=== PATIENT | female | born 1945 | race Caucasian/White ===

== ENCOUNTER → 2016-05-16 | Outpatient (CLI) | payer MEDICARE, OTHER ==
--- NOTE | 2016-05-16 13:16 | RAD ---
EXAM DESCRIPTION: Thoracic Spine,AP Lateral CLINICAL HISTORY: 70 years Female, INJURY IMPRESSION: 3 views of the thoracic spine reveals an epidural stimulator. Multilevel degenerative change of the thoracolumbar spine with intervertebral disc height loss and anterior osteophytes. This results in exaggeration of the thoracic kyphosis. The C7-T1 junction is visualized and unremarkable. No vertebral body fracture. Electronically signed by: Kenny Sewell MD 05/16/2016 1:15 PM CDT
== END | disposition home or self-care (01) ==
LOC: RAD 10:40
PROVIDERS: ATTEND Nurse Practitioner Family
DX: M51.34 Other intervertebral disc degeneration, thoracic region (principal); T14.8 Other injury of unspecified body region

== ENCOUNTER → 2016-10-13 | Outpatient (CLI) | payer MEDICARE, OTHER | LOC: GMAL 10:59 | PROVIDERS: ATTEND Family Medicine | DX: R30.0 Dysuria (principal); D48.61 Neoplasm of uncertain behavior of right breast; N63 Unspecified lump in breast; C50.919 Malignant neoplasm of unspecified site of unspecified female breast; D51.3 Other dietary vitamin B12 deficiency anemia; R53.83 Other fatigue; M25.50 Pain in unspecified joint; E55.9 Vitamin D deficiency, unspecified; Z85.3 Personal history of malignant neoplasm of breast ==

== ENCOUNTER → 2016-10-21 | Outpatient (CLI) | payer MEDICARE, OTHER ==
--- NOTE | 2016-10-22 07:13 | US ---
EXAM DESCRIPTION: Abdomen,Complete CLINICAL HISTORY: ELEVATED LFTsnone COMPARISON: None TECHNIQUE: Real-time sonographic images of the abdomen are obtained FINDINGS: Pancreas is unremarkable. The right lobe of the liver measures 15.2cm. The liver is diffusely homogeneous and increased in echogenicity compatible with hepatic steatosis. No focal hepatic mass is seen. The gallbladder is normally distended and free of abnormal internal echogenicities. No gallbladder wall thickening or pericholecystic fluid is seen. The common bile duct measures five mm in greatest diameter. The right kidney measures 7.9 cm. The left kidney measures 8.8 cm. Both kidneys show normal renal cortical echogenicity. No hydronephrosis is seen. The spleen measures 9.9 cm. Visualized IVC and abdominal aorta are within normal limits. IMPRESSION: Hepatic steatosis. Otherwise, unremarkable abdominal ultrasound. Electronically signed by: Jeison Moreland MD 10/22/2016 7:11 AM CDT
== END | disposition home or self-care (01) ==
LOC: US 08:44
PROVIDERS: ATTEND Family Medicine
DX: R94.5 Abnormal results of liver function studies (principal)

== ENCOUNTER → 2017-04-24 | Outpatient (CLI) | payer MEDICARE, OTHER ==
--- NOTE | 2017-04-24 21:40 | CT ---
EXAM DESCRIPTION: Soft Tissue Neck w/Contrast: Computed Tomography. CLINICAL HISTORY: R59.9. Enlarged lymph nodes, unspecified. COMPARISON: MRI scan cervical spine 11/06/2014. TECHNIQUE: Spiral, axial 2.5 mm scans through the neck soft tissues after infusion of IV contrast. Sagittal and coronal 2.0 mm reconstructions. No adverse reactions. Total Exam DLP: 323.76 mGy-cm. This exam was performed according to our departmental CT dose-optimization program which includes automated exposure control, adjustment of the mA and/or kV according to patient size and/or use of iterative reconstruction technique; to reduce radiation dose to as low as reasonably achievable (ALARA). FINDINGS: Included mastoid air cells are well aerated as are included sphenoid paranasal air cells. No abnormal enhancement or mass in the subcutaneous adipose tissue. Lymph nodes in the bilateral parapharyngeal spaces, bilateral carotid spaces, and bilateral per cervical spaces are not enlarged. Normal size and density and enhancement of the bilateral included salivary glands. No sublingual masses. The tongue appears symmetric. No effacement of the nasopharynx or oropharynx by soft tissue mass and no abnormal enhancement. No effacement or displacement of the hypopharynx and larynx with no soft tissue mass or abnormal enhancement. Normal enhancement of the thyroid gland bilaterally. No soft tissue masses or enlarged lymph nodes in the base of the neck or abutting the thoracic inlet. Pleural thickening at the right apex anterior bilaterally and posterior. Calcification of the origin of the brachiocephalic vessels and the included thoracic aortic arch. Arthrosis in the bilateral atlantooccipital joints. Atlantoaxial joint, and the bilateral C1-C2 facets. Trace anterolisthesis C3-4 and grade 1 anterolisthesis C4-5. C6-7 spondylosis with bulging disks canal and foraminal narrowing and possible neural foraminal stenosis. IMPRESSION: 1. No abnormal adenopathy in the skull base, neck, or abutting the thoracic inlet. 2. No abnormal solid organs or enhancement. No mass effect or displacement of the airway. 3. Apical pleural thickening abutting the right lung. 4. Cervical spondylosis and spondylolisthesis. Electronically signed by: Saleem Au MD 04/24/2017 9:39 PM CDT Workstation: [id number]
== END ==
LOC: CT 08:00
PROVIDERS: ATTEND Family Medicine
DX: R59.9 Enlarged lymph nodes, unspecified (principal); M47.892 Other spondylosis, cervical region; M43.12 Spondylolisthesis, cervical region

== ENCOUNTER 2017-06-22 12:06 | Emergency (ER) | payer MEDICARE, OTHER ==
[2017-06-22 12:22] VITALS: TEMP 98.8
--- NOTE | 2017-06-22 13:16 | RAD ---
EXAM DESCRIPTION: Abdomen Series CLINICAL HISTORY: left sided abd pain, diarrhea with bloody stool. COMPARISON: None. TECHNIQUE: Upright PA chest with supine and upright views of the abdomen FINDINGS: The lungs are clear. Abnormal bowel gas pattern with moderately dilated loops of colon with short fluid levels colon and small bowel. IMPRESSION: 1. Findings are nonspecific but could indicate colitis, possibly pseudomembranous enterocolitis if the patient has recently been on antibiotic therapy. Electronically signed by: Ronan Swanson MD 06/22/2017 1:15 PM CDT
--- NOTE | 2017-06-22 14:08 | ED.PDOC ---
History of Present Illness - General Chief Complaint: GI Problem Stated Complaint: diarrhea Time Seen by Provider: 06/22/17 12:28 Source: patient Exam Limitations: no limitations - History of Present Illness Initial Comments: the patient is a 71-year-old female presenting to the emergency room secondary to mild left and lower abdominal discomfort with associated diarrhea and a little bit of blood with the diarrhea since this morning. No real difficulty yesterday. Mild nausea but no vomiting. No syncope or near syncope. No fever. She has not been on antibiotics recently. No history of any inflammatory bowel disease. She has never had a colonoscopy. Timing/Duration: unsure Severity: moderate Improving Factors: nothing Worsening Factors: nothing Associated Symptoms: denies symptoms Allergies/Adverse Reactions: Allergies Doxycycline Allergy (Verified 06/22/17 12:22) Iodine Allergy (Unverified 04/04/12 10:28) Penicillins Allergy (Unverified 04/04/12 10:28) Sulfa Drugs Allergy (Unverified 04/04/12 10:28) Tizanidine Allergy (Verified 06/22/17 12:22) Home Medications: Ambulatory Orders Acetaminophen Arthritis [Tylenol Arthritis] 650 mg PO PRN 06/22/17 Ciprofloxacin [Cipro] 500 mg PO BID #14 tab 06/22/17 Lisinopril 20 mg PO BID 06/22/17 Melatonin 1 mg PO PRN 06/22/17 Metronidazole 500 mg PO TID #20 tab 06/22/17 Montelukast [Singulair] 10 mg PO BEDTIME 06/22/17 Ranitidine HCl 150 mg PO BID 06/22/17 Sertraline HCl 150 mg PO DAILY 06/22/17 diphenhydrAMINE HCL [Benadryl] 25 mg PO PRN 06/22/17 Review of Systems - Review of Systems Constitutional: States: no symptoms reported EENTM: States: no symptoms reported Respiratory: States: no symptoms reported Cardiology: States: no symptoms reported Gastrointestinal/Abdominal: States: see HPI, abdominal pain, diarrhea Genitourinary: States: no symptoms reported Musculoskeletal: States: no symptoms reported Skin: States: no symptoms reported Neurological: States: no symptoms reported Endocrine: States: no symptoms reported All other Systems: No Change from Baseline Past Medical History (General) - Patient Medical History Hx Stroke: No Hx Congestive Heart Failure: No Hx Hypertension: Yes Hx Diabetes: No Hx Cancer: Yes - Breast - Vaccination History Hx Influenza Vaccination: Yes Hx Pneumococcal Vaccination: Yes - Social History Hx Tobacco Use: Yes Family Medical History - Family History Mother Family History: Unknown Living Status: Physical Exam - Physical Exam General Appearance: Alert, Comfortable, No apparent distress Eye Exam: bilateral normal Ears, Nose, Throat: hearing grossly normal, normal ENT inspection, normal pharynx Neck: full range of motion, supple Respiratory: lungs clear, normal breath sounds, no respiratory distress, no accessory muscle use Cardiovascular/Chest: normal peripheral pulses, regular rate, rhythm, no edema Peripheral Pulses: radial,right: 2+, radial,left: 2+ Gastrointestinal/Abdominal: soft, other - mild left sideddiscomfort palpation. No true rebound or peritoneal signs. Rectal Exam: deferred - the patient is reluctant to have a rectal exam., heme positive stool - grossly positive blood with the stool. Back Exam: normal inspection, no CVA tenderness Extremity: normal range of motion, non-tender, normal inspection, no pedal edema , normal capillary refill Neurologic: ssds mk 2 advanced operator II-XII nml as tested, alert, normal mood/affect, oriented x 3 Skin Exam: normal color Comments: Vital Signs - 24 hr 06/22/17 06/22/17 12:18 13:20 Temperature 98.8 F Pulse Rate [ 95 H 80 Left Brachial] Respiratory 20 16 Rate Blood Pressure 132/76 129/73 [Left Arm] O2 Sat by Pulse 97 98 Oximetry Progress - Progress Progress: 06/22/17 14:09 the patient is a 71-year-old female presenting to the emergency room secondary to left-sided abdominal discomfort with diarrhea that does have a small amount of blood with it. Presumptive diagnosis here is colitis versus diverticulitis, consistent with her x-ray. she did test negative for C. difficile here. Given the short duration of symptoms, additional imaging does not appear to be warranted at this time. White blood cell count was moderately elevated at 14,000. The patient is being placed on ciprofloxacin and metronidazole. She needs to keep herself well hydrated. at this point in time , I do not see that admitting the patient to the hospital would benefit her in any particular way. If pain worsens or bleeding worsens in spite of treatment, then she will need to return for additional workup and treatment. Otherwise she should follow up with her primary care doctor early next week for reevaluation. she is currently well hydrated and in no acute distress. Colonoscopy may be warranted on this patient at a later date given that she has never had one before according to her. ER warnings were given for any worsening. 06/22/17 14:13 - Results/Orders Results/Orders: Laboratory Results - last 24 hr 06/22/17 06/22/17 06/22/17 12:50 13:00 13:00 WBC 14.5 H RBC 4.58 Hgb 14.3 Hct 42.2 MCV 92.3 MCH 31.3 H MCHC 33.9 RDW 12.7 Plt Count 235 MPV 8.1 Absolute Neuts (auto) 10.70 H Absolute Lymphs (auto) 2.80 Absolute Monos (auto) 1.00 H Absolute Eos (auto) 0.00 Absolute Basos (auto) 0.00 Neutrophils % 73.9 Lymphocytes % 19.1 L Monocytes % 6.7 Eosinophils % 0.1 L Basophils % 0.2 Sodium 133 L Potassium 3.6 Chloride 99 L Carbon Dioxide 25 Anion Gap 12.6 BUN 9 Creatinine 1.06 BUN/Creatinine Ratio 8.5 L Random Glucose 111 H Serum Osmolality 265.8 L Calcium 9.3 Total Bilirubin 0.8 AST 28 ALT 19 Alkaline Phosphatase 64 Serum Total Protein 7.5 Albumin 4.0 Globulin 3.5 Albumin/Globulin Ratio 1.1 Amylase 73 Lipase 22 Urine Color Yellow Urine Appearance Clear Urine pH 7.0 Ur Specific Hessmer 1.010 Urine Protein Negative Urine Glucose (UA) Negative Urine Ketones Negative Urine Blood Negative Urine Nitrite Negative Urine Bilirubin Negative Urine Urobilinogen 0.2 Ur Leukocyte Esterase Negative Urine RBC 0 Urine WBC 0-1 Ur Epithelial Cells 3-5 Urine Bacteria Rare acute abdominal series shows no evidence of any obstruction or perforation. X- rays consistent with colitis. Departure - Departure Clinical Impression: Colitis presumed infectious Disposition: Discharge to Home or Self Care Condition: Fair Departure Forms: ED Discharge - Pt. Copy, Patient Portal Self Enrollment Instructions: DI for Colitis Diet: bland diet Activity: increase activity as tolerated Referrals: Remi Mauricio III, MD [Primary Care Provider] - 1-2 Weeks Prescriptions: Ciprofloxacin [Cipro] 500 mg PO BID #14 tab Metronidazole 500 mg PO TID #20 tab Home Medications: Ambulatory Orders Acetaminophen Arthritis [Tylenol Arthritis] 650 mg PO PRN 06/22/17 Ciprofloxacin [Cipro] 500 mg PO BID #14 tab 06/22/17 Lisinopril 20 mg PO BID 06/22/17 Melatonin 1 mg PO PRN 06/22/17 Metronidazole 500 mg PO TID #20 tab 06/22/17 Montelukast [Singulair] 10 mg PO BEDTIME 06/22/17 Ranitidine HCl 150 mg PO BID 06/22/17 Sertraline HCl 150 mg PO DAILY 06/22/17 diphenhydrAMINE HCL [Benadryl] 25 mg PO PRN 06/22/17 Additional Instructions: the patient is a 71-year-old female presenting to the emergency room secondary to left-sided abdominal discomfort with diarrhea that does have a small amount of blood with it. Presumptive diagnosis here is colitis versus diverticulitis, consistent with her x-ray. she did test negative for C. difficile here. Given the short duration of symptoms, additional imaging does not appear to be warranted at this time. White blood cell count was moderately elevated at 14,000. The patient is being placed on ciprofloxacin and metronidazole. She needs to keep herself well hydrated. at this point in time , I do not see that admitting the patient to the hospital would benefit her in any particular way. If pain worsens or bleeding worsens in spite of treatment, then she will need to return for additional workup and treatment. Otherwise she should follow up with her primary care doctor early next week for reevaluation. she is currently well hydrated and in no acute distress. Colonoscopy may be warranted on this patient at a later date given that she has never had one before according to her. ER warnings were given for any worsening.
[2017-06-22] MEDS ORDERED: metroNIDAZOLE 500 MG TAB PO ONE (14:12)
[2017-06-22] MEDS ORDERED: CIPROFLOXACIN 500 MG TAB PO ONE (14:12)
[2017-06-22 14:27] VITALS: BP 134/77; O2SAT 99
== END 2017-06-22 14:27 | disposition home or self-care (01) ==
LOC: ER 12:06
DX: K52.9 Noninfective gastroenteritis and colitis, unspecified (principal); I10 Essential (primary) hypertension; Z85.3 Personal history of malignant neoplasm of breast

== ENCOUNTER → 2017-07-13 | Outpatient (CLI) | payer MEDICARE, OTHER ==
--- NOTE | 2017-07-13 10:13 | RAD ---
EXAM DESCRIPTION: Barium Enema w/Gastrogaffin: CLINICAL HISTORY: SIGMOID OBSTRUCTION. Constipation. Lack of bowel movements. COMPARISON: Abdominal series 06/22/2017. Abdominal series at [facility] 07/07/2017. TECHNIQUE: Patient lateral left decubitus on fluoroscopic table. Gastrografin contrast one part mixture with 1 part water. Enema tip inserted in rectum. 1 fluoroscopic image to check balloon inflation. Gastrografin contrast introduced into the rectum in a retrograde manner under fluoroscopic visualization. Multiple fluoroscopic guided images, various positions. KUB was recorded with patient supine. The enema tip was removed and patient evacuated. The patient tolerated the procedure well, with no immediate complications. Fluoroscopy time was 1.9 minutes. Fluoroscopic images recorded: 10 . Conventional abdominal images recorded: 1. DAP 33.214 gy-centimeter squared. FINDINGS: Contrast moved rapidly through the rectosigmoid and descending colon to the splenic flexure and the distal transverse colon. No obstruction. Multiple diverticula in the rectosigmoid with minimal spasm but no intrinsic masses. No contrast extravasation. No mass effect. The proximal sigmoid colon descending colon and splenic flexure demonstrating relatively smooth rosario. IMPRESSION: Diverticulosis of the rectosigmoid colon with minimal spasm. No intrinsic mass or mass effect. No contrast extravasation. Decreased haustral markings in the splenic flexure, descending colon, and proximal sigmoid colon. Images were reviewed in person with Dr. Cordero at approximately 1000 hours on 07/13/2017. CRITICAL COMMUNICATION: The critical value was discussed directly by phone with Dr. Remi Mauricio at approximately 915 hours, on 07/13/2017 Electronically signed by: Saleem Au MD 07/13/2017 10:11 AM CDT
== END ==
LOC: RAD 07:59
PROVIDERS: ATTEND Family Medicine
DX: K56.49 Other impaction of intestine (principal); K57.30 Diverticulosis of large intestine without perforation or abscess without bleeding

== ENCOUNTER → 2017-07-18 | Outpatient (CLI) | payer MEDICARE, OTHER ==
--- NOTE | 2017-07-18 13:52 | CT ---
EXAM DESCRIPTION: Abdomen/Pelvis w/wo Contrast: Computed Tomography. CLINICAL HISTORY: K56.49. Other impaction of intestine. COMPARISON: Limited Gastrografin enema under fluoroscopy guidance, 07/13/2017. TECHNIQUE: Spiral-axial scans at 5.0 mm intervals through the abdomen and pelvis before and after standard dose nonionic IV contrast. Water soluble barium oral contrast. Coronal and sagittal 2.0 mm reconstructions. 5 mm Delayed helical-axial scans, liver through the pubic symphysis. No adverse reactions. Total Exam DLP 3017.69 mGy - cm. This exam was performed according to our departmental CT dose-optimization program which includes automated exposure control, adjustment of the mA and/or kV according to patient size and/or use of iterative reconstruction technique; to reduce radiation dose to as low as reasonably achievable (ALARA). FINDINGS: Lung bases and pleura: Minimal scarring in the bilateral bases. Coronary artery calcifications. Liver, Stomach, Spleen, Adrenal Glands: Stomach contains oral contrast. Long axis of the right lobe of the liver is 18.2 cm. Pancreas, Gallbladder, Ducts: Gallbladder is visualized. Question of sludge in the gallbladder neck. Normal caliber of the duct. Pancreas negative. Celiac axis range calcifications. Kidneys and Ureters: Unremarkable. Mesentery: no fascial thickening or fatty stranding. No free air or free fluid. Aorta: Minimal intimal wall thickening and moderate atherosclerotic calcification mostly distal. Transverse diameter of the distal segment is 2.5 cm. Small Bowel: Contains oral contrast. Normal caliber. Terminal Ileum/Cecum: Normal caliber of the terminal ileum with a 7 cm diverticula on the medial wall. Cecum is unremarkable with fatty appearance of the ileocecal valve. Appendix is not seen. Colon: Hypertrophic haustra in the ascending colon, approximately 6-7 are seen. The first proximal posterior abutting the ileocecal valve shows thickened muscle versus mass or polyp, with narrowed lumen. (Coronal sequence image 65, axial sequence image 44, and sagittal sequence image 83.) More distally, the contrast is less concentrated in the air-fluid levels in the transverse and descending colon and rectosigmoid. Mild redundancy of the sigmoid colon. Small diverticula with no complications. No mass effect or large intrinsic mass.. Pelvic Organs: Small retroverted or retroflexed uterus. Ovaries may be present with calcifications. No fluid in the cul-de-sac. Small urinary bladder 3 4 oval-shaped with no calcifications. Spine and Bony Pelvis: Spondylosis L4-5 more than L5-S1 with minimal levoscoliosis and thoracolumbar dextroscoliosis. Bilateral hip arthrosis. Pubic symphysis arthrosis. No destructive lesions. Abdominal Wall/Back Soft Tissues: Bilateral stimulator posterior right side abutting the pelvis electrodes most likely in the thoracic spinal column. IMPRESSION: 1. Prominent haustral in the descending colon. The most prominent one is just distal to the ileocecal valve and cannot exclude polyp or mass. Consider colonoscopy. 2. Slight enlargement of the right lobe of the liver. Normal contrast enhancement with no focal lesions. 3. Small diverticula on the medial wall of the terminal ileum. 4. Ectasia of the distal abdominal aorta. 5. Spondylosis of the lumbar spine with scoliosis. Electronically signed by: Saleem Au MD 07/18/2017 1:51 PM CDT
== END ==
LOC: CT 10:01
PROVIDERS: ATTEND Family Medicine
DX: K56.49 Other impaction of intestine (principal); K57.90 Diverticulosis of intestine, part unspecified, without perforation or abscess without bleeding; I77.811 Abdominal aortic ectasia; M48.061 Spinal stenosis, lumbar region without neurogenic claudication; M41.9 Scoliosis, unspecified

== ENCOUNTER → 2017-12-01 | Outpatient (CLI) | payer MEDICARE, OTHER | LOC: RAD 09:09 | PROVIDERS: ATTEND Orthopaedic Surgery | DX: Z01.818 Encounter for other preprocedural examination (principal); M54.16 Radiculopathy, lumbar region; M79.641 Pain in right hand; M79.644 Pain in right finger(s) ==

== ENCOUNTER → 2018-01-10 | Outpatient (CLI) | payer MEDICARE, OTHER ==
--- NOTE | 2017-12-01 09:43 | RAD ---
EXAM DESCRIPTION: Fingers,Right CLINICAL HISTORY: 72 years Female, PAIN IN RIGHT FINGERS TECHNIQUE: 3 views of the right middle were performed. FINDINGS: The visualized bones are well-mineralized.No acute fracture or dislocation. The soft tissues appear grossly unremarkable. Degenerative changes are identified in the proximal and distal interphalangeal joints of the right middle finger. IMPRESSION: Degenerative changes are identified in the proximal and distal interphalangeal joints of the right middle finger. Electronically signed by: Jessica Link MD 12/01/2017 9:42 AM CDT
--- NOTE | 2017-12-01 09:44 | RAD ---
EXAM DESCRIPTION: Hand,Right 3 Views CLINICAL HISTORY: PAIN IN RIGHT HAND COMPARISON: None Available. TECHNIQUE: AP, LATERAL, AND OBLIQUE FINDINGS: The visualized bones appear well mineralized. No acute fracture or dislocation. The soft tissues appear grossly unremarkable. Moderate to severe osteoarthritis of the first right carpometacarpal joint. Degenerative changes are identified in the proximal and interphalangeal joints of the hand. IMPRESSION: Moderate to severe osteoarthritis of the first right carpometacarpal joint. Degenerative changes are identified in the proximal and interphalangeal joints of the hand. Electronically signed by: Jessica Link MD 12/01/2017 9:43 AM CDT
--- NOTE | 2018-01-11 08:31 | CT ---
EXAM DESCRIPTION: Lumbar Spine CLINICAL HISTORY: 72 years, Female, LUMBAR RADICULOPATHY COMPARISON: CT abdomen pelvis dated July 18, 2017. TECHNIQUE: Contiguous thin section axial images were obtained through the lumbar spine without the use of intravenous contrast. Reformatted coronal and sagittal images were also obtained and reviewed. FINDINGS: Diffuse osteopenia of the visualized bones noted. Normal lumbar lordotic curvature is seen. No acute compression deformity. The vertebral body heights are well-maintained. Multilevel degenerative changes of the lumbar spine noted more predominant at L4-L5 and L5-S1 levels with intervertebral disc space narrowing and vacuum disc phenomenon. No evidence of spondylolisthesis. The pre and paravertebral soft tissues appear grossly unremarkable. Extensive atherosclerotic calcifications of the abdominal aorta noted. L1-L2: Mild diffuse disc bulge, mild to moderate bilateral facet hypertrophy and ligamentum flavum thickening causing mild canal narrowing. No significant neural foramen narrowing. L2-L3: Mild diffuse disc bulge, moderate facet hypertrophy changes and ligamentum flavum thickening causing moderate spinal canal narrowing. No significant neural foramen narrowing. Posterior epidural lipomatosis is also contributing to spinal canal narrowing. L3-L4: Mild diffuse disc bulge, severe facet hypertrophic changes and ligamentum flavum thickening causing moderate spinal canal narrowing. Moderate bilateral neural foramen narrowing. Posterior epidural lipomatosis also contiguity to moderate spinal canal narrowing. L4-L5: Mild diffuse disc bulge, severe facet hypertrophic changes and ligamentum flavum thickening causing [id number] spinal canal narrowing. Moderate right and moderate to severe left neural foramen narrowing. L5-S1: Mild diffuse disc bulge, moderate bilateral facet hypertrophic changes and ligamentum flavum thickening with no significant spinal canal narrowing. Moderate right and mild left neural foramen narrowing. IMPRESSION: 1. No acute compression deformity. 2. Multilevel degenerative changes of the lumbar spine more predominant at L4-L5 and L5-S1 levels with intervertebral disc space narrowing. 3. Posterior epidural lipomatosis at L2-L3 and L3-L4 level causing spinal canal narrowing, predominantly at L3-L4 level. This exam was performed according to our departmental dose-optimization program, which includes automated exposure control, adjustment of the mA and/or kV according to patient size and/or use of iterative reconstruction technique. Electronically signed by: Costa Hernandez MD 01/11/2018 8:30 AM SURVEY RESEARCH TEACHER
== END ==
LOC: CT 10:00
PROVIDERS: ATTEND Family Medicine
DX: M51.16 Intervertebral disc disorders with radiculopathy, lumbar region (principal)

== ENCOUNTER 2018-01-16 05:44 | Day surgery (SDC) | payer MEDICARE, OTHER ==
--- NOTE | 2018-01-15 10:26 | HP ---
CHIEF COMPLAINT: Right third digit pain. HISTORY OF PRESENT ILLNESS: Dilma is a 72-year-old female with a history of pain in the right third digit. She describes the pain as being in the palmar region and also has some clicking and occasional locking. She has requested operative intervention. After discussing the risks, benefits and alternatives to that the patient has given informed consent for trigger finger release. PAST SURGICAL HISTORY: 1. Mastectomy. 2. Cataract removal. 3. Pain pump placement. MEDICATIONS: 1. Penicillin. 2. Doxycycline. 3. Tizanidine. ALLERGIES: NO KNOWN DRUG ALLERGIES. CODE STATUS: Full code. IMMUNIZATIONS: Up to date. FAMILY HISTORY: None pertinent to today's complaint. SOCIAL HISTORY: The patient does not drink, smoke or use any illicit drugs. REVIEW OF SYSTEMS: Negative except as indicated in the History of Present Illness. PHYSICAL EXAMINATION: VITAL SIGNS: Blood pressure 162/86. Pulse 84. Height 5'8". Weight 185 pounds. MENTAL STATUS: The patient is awake, alert, and is able to give a good history and participate in the physical. The patient is oriented to person, place and time. SKIN: Normal tone and turgor. MUSCULOSKELETAL: She has tenderness over the A1 darrin. She has intact sensation throughout the hand. It is warm and well perfused. She has palpable clicking with flexion at the A1 darrin. ASSESSMENT: 1. Trigger finger. PLAN: The plan at this point is for trigger finger release. We have discussed the risks, benefits, and alternatives to that and the patient has given informed consent. #[id number] MTDD
[2018-01-16] MEDS ORDERED: SODIUM CHL 0.9% 100ML MINI-BAG 100 ML IVPB ONE (07:57)
[2018-01-16] MEDS ORDERED: ceFAZolin SODIUM 1 GM VIAL ONE (07:58)
[2018-01-16] MEDS ORDERED: LACTATED RINGERS 1,000 ML ONE (07:58)
[2018-01-16] MEDS ORDERED: BUPIVACAINE 0.25% INJ 30 ML VIAL INJ ONE (08:41)
[2018-01-16] MEDS ORDERED: LIDOCAINE 1% 10 ML VIAL INJ ONE ×2 (08:42→10:00)
[2018-01-16] MEDS ORDERED: fentaNYL CITRATE INJ 50 MCG/ML AMP ONE (09:19)
[2018-01-16] MEDS: ceFAZolin SODIUM 1 GM VIAL ONE ×2 (09:51→10:00)
[2018-01-16] MEDS: VANCOMYCIN HCL INJ 1,000 MG VIAL IVPB ONE ×2 (09:51→10:00)
[2018-01-16] MEDS ORDERED: PROPOFOL 200 MG/20 ML VIAL IV ONE (10:00)
[2018-01-16] MEDS ORDERED: HYDROcodone 5MG/APAP 325MG 1 EA TAB ONE (10:25)
[2018-01-16 11:06] VITALS: BP 166/75; TEMP 96.6; O2SAT 95
--- NOTE | 2018-01-18 09:57 | OP ---
DATE OF PROCEDURE: 01/16/18 PREOPERATIVE DIAGNOSIS: 1. Trigger finger. POSTOPERATIVE DIAGNOSIS: 1. Trigger finger. PROCEDURE: 1. Trigger finger release. SURGEON: Ash Schrader MD. LABORER CHEMICAL PROCESSING: Saleem Harris CST, SA-C. ANESTHESIA: Local with sedation. COMPLICATIONS: None. FINDINGS: Triggering at the A1 darrin of the right third digit. INDICATION: Ms. Epps has a history of pain and clicking at the A1 darrin. Because of failure of conservative measures, she requested operative intervention. After discussing the risks, benefits and alternatives to operative therapy, the patient has given informed consent for trigger finger release. PROCEDURE: The patient was brought to the Operating Room and placed in the supine position. Sedation was administered and local anesthetic was injected into the operative area. Following injection, the arm was sterilely prepped and draped. A transverse incision was made directly overlying the A1 darrin of the triggering digit and blunt dissection was carried down to the darrin while protecting the digital nerves. After identification of the darrin, the darrin was transected and a [place] elevator was passed both proximally and distally to ensure complete release. The finger was flexed and extended and there was no evidence of locking or clicking. The wound was thoroughly irrigated and closed with Nylon suture. A sterile dressing was placed and the patient was taken to the Day Surgery Unit. POSTOPERATIVE PLAN: The patient will be doing range of motion of the digits on day 1 and will followup with us in two days. #[id number] MTDD
== END 2018-01-16 11:25 | disposition home or self-care (01) ==
LOC: AMB 05:44
PROVIDERS: ATTEND Orthopaedic Surgery
DX: M65.331 Trigger finger, right middle finger (principal); I10 Essential (primary) hypertension; K21.9 Gastro-esophageal reflux disease without esophagitis; J44.9 Chronic obstructive pulmonary disease, unspecified; Z87.891 Personal history of nicotine dependence; Z85.3 Personal history of malignant neoplasm of breast; Z88.0 Allergy status to penicillin; Z88.2 Allergy status to sulfonamides; Z88.8 Allergy status to other drugs, medicaments and biological substances; Z79.899 Other long term (current) drug therapy
CPT/HCPCS: 01810; 26055; 80307; J0690; J3010; J3370; J3490; J7050; J7120

== ENCOUNTER → 2018-02-14 | Outpatient (CLI) | payer MEDICARE, OTHER ==
--- NOTE | 2018-02-14 16:34 | RAD ---
EXAM DESCRIPTION: Barium Swallow: Rad-Fluoroscopy. CLINICAL HISTORY: food in esophagus causing other injury COMPARISON: None TECHNIQUE: The patient swallowed barium pill with water. The patient swallowed gas-producing granules, water, and heavy density barium under fluoroscopic visualization. The images were obtained with the patient standing and horizontal. Patient drank medium density barium through a straw in the semi-prone position. 89 fluoroscopic cine loop images. 13 static fluoroscopic images. Total fluoroscopy time was 2.8 minutes. DAP: 15.07 Gy-cm2.. 105.7 mGy. FINDINGS: There was some delay in patient swallowing the barium pill in the oral cavity and also in the proximal esophagus. Also delay at the gastroesophageal junction before passage into the stomach. Initial swallow is unremarkable with no mass effect or laryngeal penetration or aspiration. Patient does not completely empty oral cavity with residual contrast filling into the left vallecula and pooling. Primary peristaltic wave reaches the junction between the middle third and distal third of the esophagus. Secondary contractions are seen in the distal esophagus. No mucosal lesions or mass effect. Minimal narrowing at the gastroesophageal junction. When patient tilted from upright to supine position, there was marked gastroesophageal reflux to the level of the thoracic inlet.. Less reflux noted when patient rolled from supine to prone position. Stomach moderately distended with contrast and barium Patient has dorsal column stimulator electrodes at approximately the T8-T9 level. IMPRESSION: 1. Delays in swallowing noted in the laryngeal region and gastroesophageal region. No laryngeal aspiration or penetration. Incomplete swallowing with residual barium in the oral cavity draining into the left vallecula. 2. Secondary swallowing noted in the distal third of the esophagus. No mucosal lesions. Narrowing of the gastroesophageal junction. No abnormal hernia. Marked gastroesophageal reflux when patient tilted from upright position to supine position. Electronically signed by: Saleem Au MD 02/14/2018 4:33 PM [facility]
== END ==
LOC: RAD 08:54
PROVIDERS: ATTEND Family Medicine
DX: T18.108A Unspecified foreign body in esophagus causing other injury, initial encounter (principal); T18.128A Food in esophagus causing other injury, initial encounter

== ENCOUNTER 2018-02-17 16:37 | Emergency (ER) | payer MEDICARE, OTHER ==
--- NOTE | 2018-02-17 16:59 | ED.PDOC ---
History of Present Illness - General Chief Complaint: Abdominal Pain Stated Complaint: pain and cramping after taking tizanidine Time Seen by Provider: 02/17/18 16:57 Information Source: patient Exam Limitations: no limitations - History of Present Illness Initial Comments: patient comes in today for medication side effects. Patient was worried she accidentally took a medication that she has an allergy to. She has had long- term back spasms and history of back injury. For this she occasionally takes a muscle relaxer. In the past, when she took Tizanidine she had a reaction of severe abdominal cramping and diarrhea. She did not have any rash, shortness or breath, or swelling but was told not to take the medication any more. Today she got the pills she had mixed up and accidentally took one approximately two hours ago. No nausea, vomiting, fever, rash, shortness of breath, rash, or swelling is occurring now or before but patient was worried that an allergic reaction would be worse this time. Abdominal Pain Onset Location: LLQ Pain Radiation: no radiation Quality: severe, cramping Timing/Duration: 1-3 hours Improving Factors: nothing Worsening Factors: nothing Associated Symptoms: diarrhea Review of Systems - Review of Systems Constitutional: States: no symptoms reported. Denies: chills, fever EENTM: States: no symptoms reported. Denies: blurred vision, ear discharge, nose congestion, throat pain Respiratory: States: no symptoms reported. Denies: cough, short of breath, wheezing Cardiology: States: no symptoms reported. Denies: chest pain, edema, palpitations Gastrointestinal/Abdominal: States: see HPI Genitourinary: States: no symptoms reported Musculoskeletal: States: no symptoms reported Past Medical History (General) - Patient Medical History Hx Stroke: No Hx Congestive Heart Failure: No Hx Hypertension: Yes Hx Diabetes: No Hx Cancer: Yes - Breast Hx MRSA: No - Vaccination History Hx Influenza Vaccination: Yes Hx Pneumococcal Vaccination: Yes - Social History Hx Tobacco Use: Yes Family Medical History - Family History Mother Family History: Unknown Living Status: Physical Exam - Physical Exam General Appearance: Alert, Frail, No apparent distress Eyes, Ears, Nose, Throat Exam: PERRL/EOMI, normal ENT inspection, TMs normal, pharynx normal Neck: non-tender, full range of motion, supple, normal inspection Respiratory: chest non-tender, lungs clear, normal breath sounds, no respiratory distress Cardiovascular/Chest: normal peripheral pulses, regular rate, rhythm, no murmur Gastrointestinal/Abdominal: normal bowel sounds, soft, no pulsatile mass, tenderness - TTP LLQ with no rebound and no guarding no distention Progress - Progress Progress: 02/17/18 17:41 after patient has been resting with decrease in pain she states that last time she took this medication it caused some BRBPR. She has not seen any this time and none was seen with BM here but it was not tested. will order labs at this time - Results/Orders Results/Orders: Laboratory Results WBC 6.3 K/mm3 (4.8-10.8) 02/17/18 17:59 RBC 3.92 M/mm3 (4.20-5.40) L 02/17/18 17:59 Hgb 12.3 gm/dL (12.0-16.0) 02/17/18 17:59 Hct 37.2 % (36.0-47.0) 02/17/18 17:59 MCV 95.1 fl (81.0-99.0) 02/17/18 17:59 MCH 31.3 pg (27.0-31.0) H 02/17/18 17:59 MCHC 33.1 g/dL (33.0-37.0) 02/17/18 17:59 RDW 13.0 % (11.5-14.5) 02/17/18 17:59 Plt Count 178 K/mm3 (130-400) 02/17/18 17:59 MPV 7.9 fl (7.40-10.4) 02/17/18 17:59 Absolute Neuts (auto) 4.10 K/uL (1.8-6.8) 02/17/18 17:59 Absolute Lymphs (auto) 1.50 K/uL (1.0-3.4) 02/17/18 17:59 Absolute Monos (auto) 0.50 K/uL (0.2-0.8) 02/17/18 17:59 Absolute Eos (auto) 0.10 K/uL (0.0-0.4) 02/17/18 17:59 Absolute Basos (auto) 0.00 K/uL (0.0-0.1) 02/17/18 17:59 Neutrophils % 66.0 % (42.0-78.0) 02/17/18 17:59 Lymphocytes % 23.7 % (20.0-50.0) 02/17/18 17:59 Monocytes % 8.6 % (2.0-9.0) 02/17/18 17:59 Eosinophils % 1.3 % (1.0-5.0) 02/17/18 17:59 Basophils % 0.4 % (0.0-2.0) 02/17/18 17:59 Sodium 136 mmol/L (135-145) 02/17/18 17:59 Potassium 4.2 mmol/L (3.6-5.0) 02/17/18 17:59 Chloride 102 mmol/L (101-111) 02/17/18 17:59 Carbon Dioxide 28 mmol/L (21-31) 02/17/18 17:59 Anion Gap 10.2 (12-18) L 02/17/18 17:59 BUN 13 mg/dL (7-18) 02/17/18 17:59 Creatinine 0.97 mg/dL (0.6-1.3) 02/17/18 17:59 BUN/Creatinine Ratio 13.4 (10-20) 02/17/18 17:59 Random Glucose 105 mg/dL (70-105) 02/17/18 17:59 Serum Osmolality 272.4 mOsm/L (275-295) L 02/17/18 17:59 Calcium 9.1 mg/dL (8.4-10.2) 02/17/18 17:59 Total Bilirubin 0.3 mg/dL (0.2-1.0) 02/17/18 17:59 AST 26 IU/L (10-42) 02/17/18 17:59 ALT 17 IU/L (10-60) 02/17/18 17:59 Alkaline Phosphatase 69 IU/L (42-121) 02/17/18 17:59 Serum Total Protein 6.3 gm/dL (6.4-8.2) L 02/17/18 17:59 Albumin 3.4 g/dl (3.2-5.5) 02/17/18 17:59 Globulin 2.9 gm/dL (2.3-3.5) 02/17/18 17:59 Albumin/Globulin Ratio 1.2 (1.1-1.9) 02/17/18 17:59 Departure - Departure Clinical Impression: Medication side effect Disposition: Discharge to Home or Self Care Condition: Good Departure Forms: ED Discharge - Pt. Copy, Patient Portal Self Enrollment Instructions: DI for Abdominal Pain-Adult Referrals: Remi Mauricio III, MD [Primary Care Provider] - 1-2 Weeks Home Medications: Ambulatory Orders Acetaminophen Arthritis [Tylenol Arthritis] 650 mg PO PRN 06/22/17 Ciprofloxacin [Cipro] 500 mg PO BID #14 tab 06/22/17 Lisinopril 20 mg PO BID 06/22/17 Melatonin 1 mg PO PRN 06/22/17 Metronidazole 500 mg PO TID #20 tab 06/22/17 Montelukast [Singulair] 10 mg PO BEDTIME 06/22/17 Ranitidine HCl 150 mg PO BID 06/22/17 Sertraline HCl 150 mg PO DAILY 06/22/17 diphenhydrAMINE HCL [Benadryl] 25 mg PO PRN 06/22/17 Additional Instructions: increase by mouth fluids, return to ER for severe worsening of diarrhea or increase in pain. Follow-up on Monday with PCP if symptoms have not completely resolved.
[2018-02-17 17:59] VITALS: TEMP 97.6; O2SAT 96
[2018-02-17 18:47] VITALS: BP 98/43
== END 2018-02-17 19:00 | disposition home or self-care (01) ==
LOC: ER 16:37
DX: K52.1 Toxic gastroenteritis and colitis (principal); R10.32 Left lower quadrant pain; T42.8X5A Adverse effect of antiparkinsonism drugs and other central muscle-tone depressants, initial encounter; I10 Essential (primary) hypertension; Z85.3 Personal history of malignant neoplasm of breast; Z87.891 Personal history of nicotine dependence

== ENCOUNTER → 2018-03-14 | Outpatient (CLI) | payer MEDICARE, OTHER ==
--- NOTE | 2018-03-14 14:15 | RAD ---
EXAM: Thoracic Spine,AP Lateral CLINICAL HISTORY: INTERVERTEBRAL DISC DEGENERATION THORACIC REGION COMPARISON STUDY: Thoracic spine x-rays May 16, 2016 TECHNICAL: AP, lateral and swimmer's images of the thoracic spine FINDINGS: There is a slight exaggeration of the kyphotic curvature. There is no compression deformity/fracture. There are mild degenerative disc changes in the midthoracic levels. Intraspinal stimulation leads terminate at T6-7. IMPRESSION: Mild midthoracic degenerative disc changes are similar to the prior study. Electronically signed by: Anmol Alanis MD 03/14/2018 2:13 PM [facility]
== END ==
LOC: RAD 10:05
PROVIDERS: ATTEND Anesthesiology Pain Medicine
DX: M51.34 Other intervertebral disc degeneration, thoracic region (principal)

== ENCOUNTER → 2018-03-27 | Outpatient (CLI) | payer MEDICARE, OTHER | LOC: GMAL 14:27 | PROVIDERS: ATTEND Family Medicine | DX: D51.3 Other dietary vitamin B12 deficiency anemia (principal); E55.9 Vitamin D deficiency, unspecified ==

== ENCOUNTER → 2018-04-13 | Outpatient (CLI) | payer MEDICARE, OTHER ==
--- NOTE | 2018-04-17 11:34 | MAM ---
EXAM DESCRIPTION: 3D Screening BILATERAL : Digital Mammography. CLINICAL HISTORY: 72 years Female ANNUAL SCREENING . No complaints. Personal history of remote family history of breast cancer. Right breast cancer with mastectomy.. Childbirth. Postmenopausal state years. HRT 5 or more years ago Lifetime risk of developing breast cancer (Tyrer-Cuzick model)(%): Not calculated due to personal history of breast cancer. COMPARISON: 2-D digital screening left breast mammography 10/31/2013. TECHNIQUE: Left CC and MLO projection full-field images, digital tomosynthesis mammographic technique. Left digital 2-D full-field MLO images. CAD not available for tomosynthesis or 2-D images. FINDINGS: Left breast parenchymal density pattern is: Almost entirely fatty. No skin thickening or nipple retraction. Stable small microcalcifications. No new focal, stellate mass or density, focal asymmetry , and no suspicious microcalcifications left breast. Stable mammograms compared to prior study. Taking into account, differences in mammographic technique. IMPRESSION: BI-RADS CATEGORY: 1 - NEGATIVE FOLLOW UP: Routine digital bilateral screening, one year interval from April 2018. Written communication explaining the findings and follow-up, will be mailed to the patient and referring health care provider. According to the [employer], yearly mammograms are recommended starting at age 40 and continuing as long as a woman is in good health. Any breast change noted on a breast self-exam should be reported promptly to the patient's healthcare provider. Breast MRI is recommended for women with an approximately 20-25% or greater lifetime risk of breast cancer, including women with a strong family history of breast or ovarian cancer and women who have been treated for Hodgkin's disease. A negative mammographic report should not delay tissue diagnosis in patients with significant clinical history or physical findings. Extremely dense breast tissue limits the sensitivity of digital mammography. Electronically signed by: Saleem Au MD 04/17/2018 11:31 AM CDT
== END ==
LOC: MAMMO 10:00
PROVIDERS: ATTEND Family Medicine
DX: Z12.31 Encounter for screening mammogram for malignant neoplasm of breast (principal)

== ENCOUNTER 2018-04-23 19:25 | Emergency (ER) | payer MEDICARE, OTHER ==
--- NOTE | 2018-04-23 20:51 | ED.PDOC ---
History of Present Illness - General Chief Complaint: Back Pain or Injury Stated Complaint: Low back pain Time Seen by Provider: 04/23/18 20:37 Source: patient Exam Limitations: no limitations - History of Present Illness Initial Comments: LBP, ONSET THIS AM HAS GOTTEN WORSE. LOWER BACK ,NO RADIATION. FEVER ONSET TODAY. HX DISC HERNIATION IN PAST. Severity: moderate Improving Factors: nothing Worsening Factors: movement Associated Symptoms: cough, fever/chills Allergies/Adverse Reactions: Allergies Doxycycline Allergy (Verified 06/22/17 12:22) Iodine Allergy (Unverified 04/04/12 10:28) Penicillins Allergy (Unverified 04/04/12 10:28) Sulfa Drugs Allergy (Unverified 04/04/12 10:28) Tizanidine Allergy (Verified 06/22/17 12:22) Home Medications: Ambulatory Orders Acetaminophen Arthritis [Tylenol Arthritis] 650 mg PO PRN 06/22/17 Lisinopril 20 mg PO BID 06/22/17 Melatonin 1 mg PO PRN 06/22/17 Montelukast [Singulair] 10 mg PO BEDTIME 06/22/17 Ranitidine HCl 150 mg PO BID 06/22/17 Sertraline HCl 150 mg PO DAILY 06/22/17 Albuterol Inhaler [Ventolin Hfa Inhaler] 2 puff INH BID 04/23/18 Albuterol Sulfate Nebs [Proventil Nebs] 04/23/18 Chlortab 04/23/18 Gabapentin 300 mg PO 04/23/18 Meloxicam 15 mg PO DAILY 04/23/18 Tramadol HCl 50 mg PO Q6HR PRN 04/23/18 Acetaminophen W/ Codeine [Tylenol W/ CODEINE #3] 1 ea PO Q6HR PRN #24 04/24/18 Cefuroxime Axetil [Ceftin] 500 mg PO Q12H #20 tablet 04/24/18 Review of Systems - Review of Systems Constitutional: States: chills, fever EENTM: States: no symptoms reported Respiratory: States: cough, other - NON PROD. Denies: short of breath Cardiology: Denies: chest pain, palpitations, syncope Gastrointestinal/Abdominal: Denies: abdominal pain, nausea, vomiting Genitourinary: States: other - NO INCONTINENCE. Denies: dysuria, hematuria Musculoskeletal: States: back pain. Denies: neck pain Skin: States: no symptoms reported Neurological: Denies: numbness, weakness, other - NO FOOT DROP, PAIN DOES R ADIATE TO L FOOT Endocrine: States: no symptoms reported Hematologic/Lymphatic: States: no symptoms reported Past Medical History (General) - Patient Medical History Hx Stroke: No Hx of COPD: Yes Hx Congestive Heart Failure: No Hx Hypertension: Yes Hx Diabetes: No Hx Cancer: Yes - Breast Hx MRSA: No - Vaccination History Hx Influenza Vaccination: Yes Hx Pneumococcal Vaccination: Yes - Social History Hx Tobacco Use: Yes - Triage Comment ED Triage Comment: Pain to lower back, increasing all day. Family Medical History - Family History Mother Family History: Unknown Living Status: Physical Exam - Physical Exam General Appearance: Alert, No apparent distress Eye Exam: bilateral normal Ears, Nose, Throat: hearing grossly normal, normal ENT inspection Neck: non-tender, full range of motion, supple Respiratory: lungs clear, no respiratory distress Cardiovascular/Chest: regular rate, rhythm, no murmur Gastrointestinal/Abdominal: non tender, soft, no organomegaly Back Exam: other - TTP R CVA AND LUMBAR SPINE. NO BONY DEFORMITY. Extremity: normal range of motion, non-tender, normal inspection Neurologic: no motor/sensory deficits, alert, normal mood/affect, other - NO FOOT DROP, DTR: 1+: Achilles, left, Achilles, right, Patellar, left, 2+: Patellar, right Skin Exam: normal color Lymphatic: no adenopathy Progress - Progress Progress: 04/23/18 23:14 PAIN SLIGHTLY BETTER. 04/24/18 01:10 PT STABLE. DAUGHTER CONCERNED ABOUT HER GOING HOME, OFFERED PT 23 HOUR OBSERVATION BUT PT WANTS TO GO HOME. JUST FINISHED RX FOR SINUSITIS. - EKG/XRAY/CT XRAY: chest - RUTHIE - Additional EKG/XRAY/Consults XRAY #2: LS SPINE, DJD, RUTHIE Departure - Departure Clinical Impression: Fever, unknown origin Chronic back pain Qualifiers: Back pain location: low back pain Back pain laterality: right Sciatica presence: without sciatica Qualified Code(s): M54.5 - Low back pain; G89.29 - Other chronic pain Hypertension Qualifiers: Hypertension type: essential hypertension Qualified Code(s): I10 - Essential (primary) hypertension Time of Disposition: :16 Disposition: Discharge to Home or Self Care Condition: Good Departure Forms: ED Discharge - Pt. Copy, Patient Portal Self Enrollment Instructions: DI for Low Back Pain, Low Back Pain in Adults Referrals: Remi Mauricio III, MD [Primary Care Provider] - 1-2 Weeks Prescriptions: Acetaminophen W/ Codeine [Tylenol W/ CODEINE #3] 1 ea PO Q6HR PRN #24 PRN Reason: Pain Cefuroxime Axetil [Ceftin] 500 mg PO Q12H #20 tablet Home Medications: Ambulatory Orders Acetaminophen Arthritis [Tylenol Arthritis] 650 mg PO PRN 06/22/17 Lisinopril 20 mg PO BID 06/22/17 Melatonin 1 mg PO PRN 06/22/17 Montelukast [Singulair] 10 mg PO BEDTIME 06/22/17 Ranitidine HCl 150 mg PO BID 06/22/17 Sertraline HCl 150 mg PO DAILY 06/22/17 Albuterol Inhaler [Ventolin Hfa Inhaler] 2 puff INH BID 04/23/18 Albuterol Sulfate Nebs [Proventil Nebs] 04/23/18 Chlortab 04/23/18 Gabapentin 300 mg PO 04/23/18 Meloxicam 15 mg PO DAILY 04/23/18 Tramadol HCl 50 mg PO Q6HR PRN 04/23/18 Acetaminophen W/ Codeine [Tylenol W/ CODEINE #3] 1 ea PO Q6HR PRN #24 04/24/18 Cefuroxime Axetil [Ceftin] 500 mg PO Q12H #20 tablet 04/24/18
[2018-04-23] MEDS: KETOROLAC TROMETHAMINE INJ 30 MG/ML VIAL IV ONE (22:39)
--- NOTE | 2018-04-24 00:30 | RAD ---
EXAM DESCRIPTION: Lumbar Spine 3 Views CLINICAL HISTORY: 72 years ,Female LOW BACK PAIN COMPARISON: None. TECHNIQUE: Three views FINDINGS: Vertebral body alignment is unremarkable. No acute fractures are identified. Narrowing of the L4-5 and L5-S1 disc interspaces. Stimulator over the right lower quadrant. Vascular calcification in aorta and its branches. IMPRESSION: No acute fracture is identified. Degenerative change most notable at L4-5 and L5-S1 Electronically signed by: Natalya Mooney MD 04/23/2018 9:40 PM CDT
--- NOTE | 2018-04-24 00:31 | RAD ---
EXAM DESCRIPTION: Chest,1 View CLINICAL HISTORY: COUGH, FEVER COMPARISON: None FINDINGS: Cardiac silhouette is within normal limits. Aorta is tortuous. There is atherosclerosis. Dorsal stimulating catheter projects at the mid thoracic spine. Patient is status post right mastectomy. Surgical clips project over the right axilla. Patient is rotated. Apical pleural thickening is symmetric bilaterally. There is no focal parenchymal or pleural disease. There is no acute osseous process visualized. IMPRESSION: No evidence of acute cardiopulmonary disease. Electronically signed by: Keegan Ayala MD 04/23/2018 9:40 PM CDT
--- NOTE | 2018-04-24 00:33 | CT ---
CT ABDOMEN AND PELVIS WITHOUT CONTRAST. 04/23/2018 CLINICAL HISTORY: Flank pain and fever COMPARISON: CT abdomen and pelvis without and with contrast 07/18/2017. TECHNIQUE: Axial unenhanced [address] imaging of the abdomen and pelvis performed. Reformatted coronal and sagittal images reviewed. A dose reduction technique was utilized with automated exposure control according to patient size. FINDINGS: LOWER THORAX: Minimal bilateral lower lobe subpleural atelectasis. Heart is normal in size. ABDOMEN: LIVER/GALLBLADDER: Unremarkable liver. Normal gallbladder. SPLEEN/PANCREAS: Normal spleen. Normal pancreas. KIDNEYS/ADRENAL GLANDS: Normal adrenal glands. The kidneys are slightly lobular. No hydronephrosis or mass. No perinephric edema. RETROPERITONEAL VESSELS/NODES: The distal aorta is very atherosclerotic. There is a focal fusiform dilatation of the distal aorta 2.4 cm. Normal caliber inferior vena cava. No adenopathy. BOWEL: Small hiatal hernia. Normal remaining stomach. The small bowel loops appear normal. Appendix is not visualized. Mild sigmoid colon diverticulosis. No diverticulitis. MESENTERY/PERITONEUM: There is no mesenteric adenopathy. No ascites. No free air. PELVIS: BLADDER: The bladder is incompletely distended but otherwise unremarkable. GENITAL ORGANS: The uterus contains subserosal vascular calcifications. Dystrophic calcifications are seen within both ovaries. PERITONEUM: No free fluid. No pelvic adenopathy. Small fat-containing bilateral inguinal hernias. BONES AND SOFT TISSUES: Generalized lumbar spondylosis. Stippled lucent lesion within L3 compatible with hemangioma. Intact bony pelvis. Very mild left hip arthritis. IMPRESSION: 1. No abnormal body identified to account for reported flank pain and fever. 2. 2.4 cm fusiform distal abdominal aorta dilatation with extensive atherosclerosis. Based on size criteria, no follow-up needed. 3. Mild sigmoid colon diverticulosis. No diverticulitis. 4. Small Small hiatal hernia and fat-containing bilateral inguinal hernias.. Electronically signed by: Miriam Ann DO 04/24/2018 12:25 AM CDT
[2018-04-24] MEDS ORDERED: SODIUM CHL 0.9% 50ML MIN-BAG+ 50 ML IVPB ONE (01:07)
[2018-04-24] MEDS ORDERED: cefTRIAXone SODIUM 1 GM VIAL ONE (01:07)
[2018-04-24] MEDS: cefTRIAXone SODIUM 1 GM in SODIUM CHL 0.9% 50ML MIN-BAG+ 50 ML IVPB ONE (01:11)
[2018-04-24 01:46] VITALS: BP 122/47; TEMP 99.1; O2SAT 96
== END 2018-04-24 01:46 | disposition home or self-care (01) ==
LOC: ER 19:25
DX: M54.5 Low back pain (principal); G89.29 Other chronic pain; R50.9 Fever, unspecified; I10 Essential (primary) hypertension; M47.817 Spondylosis without myelopathy or radiculopathy, lumbosacral region; J44.9 Chronic obstructive pulmonary disease, unspecified; Z85.3 Personal history of malignant neoplasm of breast; Z87.891 Personal history of nicotine dependence; Z79.899 Other long term (current) drug therapy; Z88.1 Allergy status to other antibiotic agents; Z91.041 Radiographic dye allergy status; Z88.0 Allergy status to penicillin; Z88.2 Allergy status to sulfonamides; Z88.8 Allergy status to other drugs, medicaments and biological substances
CPT/HCPCS: 36415; 71045; 72100; 74176; 80053; 81001; 85025; 87040; J0696; J1885; J7050

== ENCOUNTER → 2018-04-26 | Outpatient (CLI) | payer MEDICARE, OTHER ==
--- NOTE | 2018-04-27 13:30 | MRI ---
EXAM DESCRIPTION: MRI of the lumbar spine CLINICAL HISTORY: M54.5 COMPARISON: September 15, 2015. TECHNIQUE: Multiplanar multisequence magnetic resonance imaging of the lumbar spine was performed without contrast. FINDINGS: The L5-S1 disc level seen on axial T2 series image 3. Lumbar lordosis is maintained. Conus medullaris is normal in thickness and signal intensity terminating at the L1 level. Susceptibility artifact associated with dorsal column spinal stimulator hardware. Battery pack on the right. No acute fracture the lumbar spine. No aggressive marrow infiltrating disease is present. Visualized SI joints and sacral struts are maintained. The retroperitoneal structures are stable in appearance. L1-2 Mild degenerative disc signal. Otherwise unremarkable. L2-3 Mild degenerative disc signal. Moderate bilateral facet joint osteoarthrosis/hypertrophy. No impingement. L3-4 There is intermediate grade degenerative disc signal. Severe bilateral facet joint osteoarthritis is present with periarticular inflammation and stress marrow reactive signal greater on the left side. A right-sided joint effusion is present with anterior directed synovial cyst measuring up to 0.6 cm maximum transaxial dimension effacing the right lateral recess and possibly impinging traversing right L4 nerve root. This cyst formation is new from the 2016 comparison. Facet inflammation has progressed since 2016. There is mild effacement right neural foraminal fat from cyst formation. Contralateral left neural foramen is maintained. Mild generalized central spinal canal narrowing. L4-5 Remote left hemilaminectomy. Associated scar tissue. Advanced degenerative disc height loss. Mild right and moderate left facet arthritis/hypertrophy. Moderate effacement left neural foraminal fat is primarily from endplate osteophyte formation and facet joint hypertrophy. This appearance has not changed since 2016. The contralateral right neural foramen is patent. The central spinal canal is widely patent. L5-S1 Mild to moderate degenerative disc signal. A right disc osteophyte formation in combination with moderate facet atrophy contributes to a mild to moderate narrowing of the right neural foramen that is unchanged in appearance from 2016. IMPRESSION: Progressive severe facet arthritis of the lumbar spine most apparent at the L3-L4 level where there is more conspicuous stress marrow reactive and periarticular inflammation in addition to new anterior directed synovial cyst of the right facet joint. See above for further details. Susceptibility artifact associated with dorsal column spinal stimulator hardware. Battery pack on the right. Stable less specific multilevel degenerative disc and facet disease described above. No new high-grade focal neurologic impingement. Electronically signed by: William Morales MD 04/27/2018 1:27 PM CDT
== END ==
LOC: MRI 11:29
PROVIDERS: ATTEND Family Medicine
DX: M47.896 Other spondylosis, lumbar region (principal); M71.38 Other bursal cyst, other site

== ENCOUNTER → 2019-01-27 | Outpatient (CLI) | payer MEDICARE, OTHER | LOC: SL 20:19 | PROVIDERS: ATTEND Family Medicine | DX: G47.33 Obstructive sleep apnea (adult) (pediatric) (principal) ==

== ENCOUNTER → 2019-04-17 | Outpatient (CLI) | payer MEDICARE, OTHER ==
--- NOTE | 2019-04-18 10:23 | MRI ---
EXAM DESCRIPTION: Knee,Left CLINICAL HISTORY: PAIN IN LEFT KNEE. Left knee pain and weakness x1.5 months. No injury recalled. COMPARISON: None Available. TECHNIQUE: MRI of the left knee is performed with multiplanar multi sequence imaging, without intravenous contrast. FINDINGS: Bone and joint: Horizontal low T1 signal along the medial tibial condyle subchondral region measures approximately 1.1 cm with moderate surrounding bone marrow edema consistent with a subchondral/trabecular fracture. This may be an insufficiency fracture (given lack of trauma history). No extension into the medial tibial plateau articular surface, no articular depression depression. A moderate knee joint effusion is present. Cartilage: Grade 2-3 chondrosis involves the medial knee compartment. Grade one chondrosis involves the lateral knee compartment. Grade 1-2 chondrosis involves the patellofemoral compartment. No full-thickness cartilage defect. Medial meniscus: Increased intrasubstance signal within the posterior horn meniscal root attachment (series 6 on image 26) represents meniscal contusion with possible small tear. No complete root avulsion/displacement. Lateral meniscus: Intact Anterior cruciate ligament: Intact Posterior cruciate ligament: Intact Medial collateral ligament: Moderate periligamentous edema consistent with grade 1 sprain. Lateral collateral ligament: Intact Popliteus tendon: Intact. Edema within the popliteus muscle consistent with grade 1 strain. Biceps femoris tendon: Intact Iliotibial band: Intact Medial and lateral retinaculum: Intact Extensor mechanism: The distal quadriceps tendon is intact. The patella tendon is intact. Soft tissues: No solid or cystic mass. Mild interstitial fissuring involves the distal semimembranosus posterior tibial insertional fibers. Mild pes anserine bursitis. Moderate medial knee joint capsular edema. IMPRESSION: 1. Medial tibial condyle nondisplaced subchondral/trabecular fracture with moderate surrounding bone marrow edema. This may represent an insufficiency fracture. 2. Medial meniscus posterior root contusion with possible small tear. 3. MCL grade 1 sprain with medial knee joint moderate capsular edema. 4. Popliteus muscle grade 1 strain. 5. Mild pes anserine bursitis. 6. Moderate knee joint effusion. Electronically signed by: Charles Quiroga DO 04/18/2019 10:22 AM CDT
== END ==
LOC: MRI 12:44
PROVIDERS: ATTEND Family Medicine
DX: S82.135A Nondisplaced fracture of medial condyle of left tibia, initial encounter for closed fracture (principal); S83.412A Sprain of medial collateral ligament of left knee, initial encounter; S86.112A Strain of other muscle(s) and tendon(s) of posterior muscle group at lower leg level, left leg, initial encounter; M70.52 Other bursitis of knee, left knee; M25.462 Effusion, left knee

== ENCOUNTER → 2019-10-21 | Outpatient (CLI) | payer MEDICARE, OTHER | LOC: GMAL 14:30 | PROVIDERS: ATTEND Family Medicine | DX: D51.9 Vitamin B12 deficiency anemia, unspecified (principal); E55.9 Vitamin D deficiency, unspecified; Z79.899 Other long term (current) drug therapy; R53.83 Other fatigue; I10 Essential (primary) hypertension ==